=== PATIENT | male | born 1950 | race Hispanic/Latino ===

== ENCOUNTER 2016-12-05 10:45 | Emergency (ER) | payer OTHER ==
[2016-12-05 10:46] VITALS: BMI 25.7
[2016-12-05] MEDS ORDERED: Sodium Chloride 0.9% 1,000 ML IV ONE (11:14)
[2016-12-05] MEDS ORDERED: Sodium Chloride 0.9% 1,000 ML ONE (11:28)
[2016-12-05 12:02] LABS: BASO % 0.3 % (0.0-2.0); CHLORIDE 98 mmol/L (98-107); EOS # 0.1 K/uL (0.0-0.7); EOS % 0.9 % (0.0-4.0); LYMPH # 0.9 K/uL (1.0-4.3); LYMPH % 8.5 % (20.0-40.0); MEAN CELL VOLUME 90.5 fL (80.0-94.0); MEAN CORPUSCULAR HEMOGLOBIN 29.7 pg (27.0-31.0); MEAN CORPUSCULAR HGB CONC 32.9 g/dL (33.0-37.0); MEAN PLATELET VOLUME 10.6 fL (7.2-11.7); MONO # 0.9 K/uL (0.0-0.8); MONO % 8.3 % (0.0-10.0); PLATELET COUNT 205 K/uL (130-400); RED CELL DISTRIBUTION WIDTH 13.2 % (11.5-14.5)
--- NOTE | 2016-12-05 12:02 | C.PDOC ---
History Of Present Illness The patient, a 66 y/o male with no significant PMHx, presents to the ED for evaluation of vomiting and diarrhea which began this morning. Patient reports eating salmon yesterday, that did not make him feel well shortly after. Patient also reports feeling weak. Otherwise, patient denies any pain, headache, dizziness, or sick contacts. Time Seen by Provider: 12/05/16 11:05 Chief Complaint (Nursing): GI Problem History Per: Patient History/Exam Limitations: no limitations Onset/Duration Of Symptoms: Hrs Current Symptoms Are (Timing): Still Present Quality Of Discomfort: denies: "Pain" Associated Symptoms: Nausea, Vomiting, Diarrhea. denies: Fever, Chills Exacerbating Factors: Food Alleviating Factors: None Last Bowel Movement: Today Recent travel outside of the [place]: No Additional History Per: Patient Past Medical History Reviewed: Historical Data, Nursing Documentation, Vital Signs Vital Signs: Last Vital Signs Temp 98.3 F 12/05/16 12:34 Pulse 77 12/05/16 12:34 Resp 20 12/05/16 12:34 BP 106/64 12/05/16 12:34 Pulse Ox 96 12/05/16 12:34 - Medical History PMH: No Chronic Diseases Denies: Chronic Kidney Disease Surgical History: No Surg Hx Family History: States: Unknown Family Hx - Social History Hx Tobacco Use: No Hx Alcohol Use: No Hx Substance Use: No - Immunization History Hx Tetanus Toxoid Vaccination: Yes (UP TO DATE) Hx Influenza Vaccination: Yes Hx Pneumococcal Vaccination: No Review Of Systems Except As Marked, All Systems Reviewed And Found Negative. Constitutional: Positive for: Weakness Gastrointestinal: Positive for: Nausea, Vomiting, Diarrhea. Negative for: Abdominal Pain Neurological: Negative for: Headache, Dizziness Physical Exam - Physical Exam Appears: Non-toxic, No Acute Distress Skin: Normal Color, Warm, Dry Head: Atraumatic, Normacephalic Eye(s): bilateral: Normal Inspection, EOMI Oral Mucosa: Moist Neck: Normal ROM, Supple Chest: Symmetrical, No Deformity, No Tenderness Cardiovascular: Rhythm Regular, No Murmur Respiratory: Normal Breath Sounds, No Rales, No Rhonchi, No Wheezing Gastrointestinal/Abdominal: Soft, No Tenderness, No Guarding, No Rebound Back: Normal Inspection, No Vertebral Tenderness, No Paraspinal Tenderness Extremity: Normal ROM, No Tenderness, No Swelling Neurological/Psych: Oriented x3, Normal Speech Gait: Steady ED Course And Treatment - Laboratory Results Result Diagrams: 12/05/16 11:44 12/05/16 11:44 Lab Interpretation: No Acute Changes O2 Sat by Pulse Oximetry: 99 (on RA) Pulse Ox Interpretation: Normal Medical Decision Making Medical Decision Making: Impression: 66y/o male with nausea, vomiting, and diarrhea Plan: * labs * Pepcid IV * Zofran IV * IV fluids * reassess and disposition Progress Notes: labs ordered and reviewed, no acute changes. . Patient received Pepcid IV, Zofran IV, and IV Fluids. Upon reevaluation, patient reports feeling better and was able to tolerate PO in ED. He feels comfortable going home and will be discharged with Rx. Disposition Counseled Patient/Family Regarding: Need For Followup, Rx Given - Disposition Disposition: HOME/ ROUTINE Disposition Time: 12:21 Condition: STABLE Additional Instructions: Prescription for Zofran sent to your [facility] pharmacy. Take zofran as needed for nausea and vomiting. Drink fluids to prevent dehydration. Try low-fat diet with increase in fluids such as sport drink, gelatin. Try soup, rice, bread, crackers , cereal, bananas to help with diarrhea. Avoid high sugar foods or drinks (soda and juice), fatty foods. Prescriptions: Ondansetron ODT [Zofran ODT] 1 odt PO BID PRN #6 odt PRN Reason: Nausea/Vomiting Instructions: Gastroenteritis (ED) - POA Present On Arrival: None - Clinical Impression Clinical Impression: Gastroenteritis - PA / FLIGHT CONTROL SPECIALIST / Resident Statement MD/DO has reviewed & agrees with the documentation as recorded. - Scribe Statement The provider has reviewed the documentation as recorded by the Scribe (Tiarra Rhodes) All medical record entries made by the Scribe were at my direction and personally dictated by me. I have reviewed the chart and agree that the record accurately reflects my personal performance of the history, physical exam, medical decision making, and the department course for this patient. I have also personally directed, reviewed, and agree with the discharge instructions and disposition.
[2016-12-05 12:03] LABS: POTASSIUM 4.7 mmol/L (3.6-5.2); SODIUM 139 mmol/L (132-148)
[2016-12-05 12:05] LABS: GFR AFRICAN-AMERICAN > 60
[2016-12-05 12:06] LABS: ALB/GLOB RATIO 1.4 (1.0-2.1); ALKALINE PHOSPHATASE 81 U/L (38-126); ALT/SGPT 38 U/L (21-72); AST/SGOT 25 U/L (17-59); BILIRUBIN,TOTAL 0.8 mg/dL (0.2-1.3); BLOOD UREA NITROGEN 23 mg/dL (9-20); CARBON DIOXIDE 27 mmol/L (22-30); GLUCOSE,RANDOM 107 mg/dL (75-110); TOTAL PROTEIN 7.5 g/dL (6.3-8.3); WHITE BLOOD COUNT 10.9 K/uL (4.8-10.8)
[2016-12-05 12:07] LABS: CALCIUM 8.8 mg/dl (8.6-10.4)
[2016-12-05 12:27] LABS: NEUTROPHIL 72 % (50-75); TOTAL CELLS COUNTED 100
[2016-12-05 12:29] LABS: LARGE PLATELETS PRESENT
[2016-12-05 12:36] VITALS: BP 106/64; PULSE 77; RESP 20; TEMP 98.3
[2016-12-05 16:02] VITALS: O2SAT 99
== END 2016-12-05 12:34 | disposition home or self-care (01) ==
LOC: C.ER 10:45
DX: K52.9 Noninfective gastroenteritis and colitis, unspecified (principal)
CPT/HCPCS: 80053; 83690; 85025; 96374; 96375; 99284; J2405; J7040

== ENCOUNTER 2017-07-19 07:54 | Emergency (ER) | payer OTHER ==
[2017-07-19 08:01] VITALS: BMI 23.5
[2017-07-19 08:03] VITALS: BP 143/84; PULSE 75; RESP 16; TEMP 98; O2SAT 99
[2017-07-19] MEDS ORDERED: Tetracaine 0.5% Ophth 2 ML BOTTLE OD STA (08:18)
[2017-07-19] MEDS ORDERED: Fluorescein 1 mg Ophthalmic Strip OD STA (08:18)
[2017-07-19] MEDS ORDERED: Fluorescein 1 mg Ophthalmic Strip ONE (08:20)
[2017-07-19] MEDS ORDERED: Tetracaine 0.5% Ophth (OR ONLY) ONE (08:21)
--- NOTE | 2017-07-19 08:26 | C.PDOC ---
History Of Present Illness Patient is a 67 y/o M presenting with R eye pain. Patient reports that he opened a basement door today and felt a jhonatan of wind hit his eye. He report that since that time he has noticed redness to his R eye with itchy feeling. Denies eye discharge. Denies vision changes. Denies contact lens use. Reports that he wears glasses only Time Seen by Provider: 07/19/17 07:59 Chief Complaint (Nursing): Eye Problem Past Medical History Vital Signs: Last Vital Signs Temp 98.0 F 07/19/17 08:01 Pulse 75 07/19/17 08:01 Resp 16 07/19/17 08:01 BP 143/84 07/19/17 08:01 Pulse Ox 99 07/19/17 08:31 - Medical History PMH: Denies: Chronic Kidney Disease Family History: States: Unknown Family Hx - Social History Hx Tobacco Use: No Hx Alcohol Use: No Hx Substance Use: No - Immunization History Hx Tetanus Toxoid Vaccination: Yes (UP TO DATE) Hx Influenza Vaccination: Yes (05/2017) Hx Pneumococcal Vaccination: No Review Of Systems Constitutional: Negative for: Fever, Chills Eyes: Positive for: Pain, Conjunctivae Inflammation, Redness. Negative for: Vision Change ENT: Negative for: Ear Pain, Ear Discharge, Nose Pain, Nose Discharge, Throat Pain, Throat Swelling Neurological: Negative for: Weakness, Numbness, Headache Physical Exam - Physical Exam Appears: Well, Non-toxic, No Acute Distress Skin: Normal Color, Warm, Dry Head: Atraumatic, Normacephalic Eye(s): bilateral: PERRL, EOMI, right: Other (conjunctival injection to R eye. Fluoroscein uptake at 6oclock. No foreign body visualized with eversion of lids) Oral Mucosa: Moist Gait: Steady ED Course And Treatment O2 Sat by Pulse Oximetry: 99 Medical Decision Making Medical Decision Making: No foreign body visualized. Fluoroscein uptake consistent with corneal abrasion. Visual acuity at baseline b/l (20/40 b/l) Will dc with drops. To follow-up with ophtho Disposition - Disposition Disposition: HOME/ ROUTINE Disposition Time: 08:26 Condition: GOOD Additional Instructions: Follow-up with ophtho with 1 week. Return to ED if condition worsens. Use drops for 5 days. Prescriptions: Ofloxacin Ophth 0.3% [Ocuflox Ophth 0.3%] 2 drop RIGHTEYE Q6 #1 bottle Instructions: Corneal Abrasion (ED) Forms: [facility] (North Korean) - Clinical Impression Clinical Impression: Corneal abrasion
== END 2017-07-19 08:43 | disposition home or self-care (01) ==
LOC: C.ER 07:54
DX: S05.01XA Injury of conjunctiva and corneal abrasion without foreign body, right eye, initial encounter (principal); X58.XXXA Exposure to other specified factors, initial encounter

== ENCOUNTER 2017-07-28 06:02 | Emergency (ER) | payer OTHER ==
[2017-07-28 06:03] VITALS: BMI 23.5
[2017-07-28] MEDS ORDERED: Tetracaine 0.5% Ophth 2 ML BOTTLE OD ONE (06:25)
[2017-07-28] MEDS ORDERED: Fluorescein 1 mg Ophthalmic Strip OD ONE (06:25)
[2017-07-28] MEDS ORDERED: Tetracaine 0.5% Ophth (OR ONLY) ONE (06:27)
[2017-07-28] MEDS ORDERED: Fluorescein 1 mg Ophthalmic Strip ONE (06:27)
--- NOTE | 2017-07-28 06:37 | C.PDOC ---
History Of Present Illness 67 year old male presents to the ER with a complaint of right eye discomfort and redness since last night. Patient was seen last week for a corneal abrasion and states he it feels the same. Patient has not followed up with ophthalmology but note she has been using drops for the past week. Denies recent trauma or injury. Time Seen by Provider: 07/28/17 06:21 Chief Complaint (Nursing): Eye Problem History Per: Patient History/Exam Limitations: no limitations Onset/Duration Of Symptoms: Hrs Current Symptoms Are (Timing): Still Present Injury To Eye?: No Wears Contact Lens?: No Associated Symptoms: Other (Discomfort, Redness). denies: Decreased Vision, Discharge From Eye Recent travel outside of the [place]: No Past Medical History Reviewed: Historical Data, Nursing Documentation, Vital Signs Vital Signs: Last Vital Signs Temp 97.6 F 07/28/17 06:10 Pulse 71 07/28/17 06:10 Resp 20 07/28/17 06:10 BP 123/77 07/28/17 06:10 Pulse Ox 96 07/28/17 06:44 - Medical History PMH: No Chronic Diseases Surgical History: No Surg Hx Family History: States: Unknown Family Hx - Social History Hx Tobacco Use: No Hx Alcohol Use: No Hx Substance Use: No - Immunization History Hx Tetanus Toxoid Vaccination: No Hx Influenza Vaccination: Yes Hx Pneumococcal Vaccination: No Review Of Systems Eyes: Positive for: Redness, Other (Discomfort). Negative for: Vision Change Physical Exam - Physical Exam Appears: Non-toxic, No Acute Distress Skin: Normal Color, Warm, Dry Head: Atraumatic, Normacephalic Eye(s): bilateral: Normal Inspection (Visual acuity with carrie 20/40 with correction), PERRL, EOMI, right: Other (Ciliary injection, Fluorescein uptake at 11'o clock area) Oral Mucosa: Moist ED Course And Treatment O2 Sat by Pulse Oximetry: 96 (Room air) Pulse Ox Interpretation: Normal Disposition Counseled Patient/Family Regarding: Diagnosis, Need For Followup, Rx Given - Disposition Referrals: Saji Mcmillan [Staff Provider] - Disposition: HOME/ ROUTINE Disposition Time: 06:49 Condition: STABLE Additional Instructions: Apply cold compress Apply drops as directed Follow up with PMD Return to ER if worse Prescriptions: Ibuprofen [Motrin] 600 mg PO Q6H #20 tab Tobramycin 0.3% [Tobrex 0.3% Opth Soln] 2 drop OD BID #1 bottle Instructions: Corneal Abrasion (ED) Forms: [facility] (Faroese), Work Excuse - Clinical Impression Clinical Impression: Corneal abrasion - Scribe Statement The provider has reviewed the documentation as recorded by the Scribe Vikas Bowman All medical record entries made by the Scribe were at my direction and personally dictated by me. I have reviewed the chart and agree that the record accurately reflects my personal performance of the history, physical exam, medical decision making, and the department course for this patient. I have also personally directed, reviewed, and agree with the discharge instructions and disposition.
[2017-07-28 07:00] VITALS: BP 118/74; PULSE 74; RESP 18; TEMP 98; O2SAT 97
== END 2017-07-28 07:01 | disposition home or self-care (01) ==
LOC: C.ER 06:02
DX: S05.01XD Injury of conjunctiva and corneal abrasion without foreign body, right eye, subsequent encounter (principal); X58.XXXD Exposure to other specified factors, subsequent encounter

== ENCOUNTER 2018-02-17 15:35 | Emergency (ER) | payer OTHER ==
[2018-02-17 15:35] VITALS: BMI 23.5
[2018-02-17 15:38] VITALS: RESP 18
[2018-02-17] MEDS ORDERED: Tdap Vaccine 0.5 ml Vial (10-64 yrs) IM ONE ×2 (16:07→16:23)
--- NOTE | 2018-02-17 16:18 | C.PDOC ---
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 pt right hand dominant,. last tdap unknown. Time Seen by Provider: 02/17/18 15:43 Chief Complaint (Nursing): Abnormal Skin Integrity History Per: Patient History/Exam Limitations: no limitations Onset/Duration Of Symptoms: Mins Current Symptoms Are (Timing): Still Present Quality Of Symptoms: Painful Severity: Mild Past Medical History Reviewed: Historical Data, Nursing Documentation, Vital Signs Vital Signs: Last Vital Signs Temp 97.8 F 02/17/18 16:51 Pulse 78 02/17/18 16:51 Resp 18 02/17/18 16:51 BP 125/78 02/17/18 16:51 Pulse Ox 99 02/17/18 16:51 - Medical History PMH: No Chronic Diseases Denies: Chronic Kidney Disease Family History: States: Unknown Family Hx - Social History Hx Tobacco Use: No Hx Alcohol Use: No Hx Substance Use: No - Immunization History Hx Tetanus Toxoid Vaccination: No Hx Influenza Vaccination: Yes Hx Pneumococcal Vaccination: No Review Of Systems Constitutional: Negative for: Fever, Chills Skin: Positive for: Other (laceration left thumb) Neurological: Negative for: Weakness, Numbness Physical Exam - Physical Exam Appears: Non-toxic, No Acute Distress Skin: Warm, Dry, Other (sensation intact. ) Head: Atraumatic, Normacephalic Extremity: Other (left thumb with laceration. from. ) ED Course And Treatment O2 Sat by Pulse Oximetry: 98 Medical Decision Making Medical Decision Making: laceration to left thumb. suture recommended; pt declines sutures; wound soaked in saline and betadine, and dressed,. analgesic and tdap given. pt advised to return in 2 days for wound check. Disposition Counseled Patient/Family Regarding: Diagnosis, Need For Followup - Disposition Referrals: Katina Castellanos MD [Staff Provider] - Disposition: HOME/ ROUTINE Disposition Time: 16:45 Condition: GOOD Additional Instructions: Keep finger clean and dry; Return to ER tomorrow for a wound check. Tylenol or Motrin for pain if needed. Instructions: Wound Care (DC) Forms: [facility] (Sami), General Discharge Instructions - Clinical Impression Clinical Impression: Laceration of left thumb
[2018-02-17] MEDS ORDERED: Bacitracin 500 Units/gm Oint Foilpak UD ONE (16:37)
[2018-02-17 16:53] VITALS: BP 125/78; PULSE 78; TEMP 97.8
[2018-02-17 22:52] VITALS: O2SAT 98
== END 2018-02-17 16:56 | disposition home or self-care (01) ==
LOC: C.ER 15:35
DX: S61.012A Laceration without foreign body of left thumb without damage to nail, initial encounter (principal); W29.8XXA Contact with other powered hand tools and household machinery, initial encounter; Y92.9 Unspecified place or not applicable; Z23 Encounter for immunization

== ENCOUNTER 2018-07-13 17:37 | Emergency (ER) | payer OTHER ==
[2018-07-13 17:37] VITALS: BMI 23.5
[2018-07-13 17:45] VITALS: BP 137/83; PULSE 80; RESP 20; TEMP 98.6; O2SAT 99
[2018-07-13] MEDS ORDERED: Sodium Chloride 0.9% 1,000 ML IV ONE (17:45)
[2018-07-13] MEDS ORDERED: Sodium Chloride 0.9% 1,000 ML ONE (17:55)
--- NOTE | 2018-07-13 17:58 | C.PDOC ---
History Of Present Illness Bernadine Navarro is a 68 year old male, employee, presents to the ED complaining of nauseas and vomiting status post eating food from the cafeteria. Denies any other medical problems. Time Seen by Provider: 07/13/18 17:41 Chief Complaint (Nursing): Abdominal Pain History Per: Patient History/Exam Limitations: no limitations Onset/Duration Of Symptoms: Hrs Current Symptoms Are (Timing): Still Present Context: Food Associated Symptoms: Nausea, Vomiting. denies: Fever, Chills, Diarrhea, Urinary Symptoms Past Medical History Reviewed: Historical Data, Nursing Documentation, Vital Signs Vital Signs: Last Vital Signs Temp 98.6 F 07/13/18 17:40 Pulse 80 07/13/18 17:40 Resp 20 07/13/18 17:40 BP 137/83 07/13/18 17:40 Pulse Ox 99 07/13/18 17:40 - Medical History PMH: No Chronic Diseases Other Surgeries: Hx of surgeries Family History: States: No Known Family Hx - Social History Hx Tobacco Use: No Hx Alcohol Use: No Hx Substance Use: No - Immunization History Hx Tetanus Toxoid Vaccination: No Hx Influenza Vaccination: Yes Hx Pneumococcal Vaccination: No Review Of Systems Except As Marked, All Systems Reviewed And Found Negative. Constitutional: Negative for: Fever, Chills Gastrointestinal: Positive for: Nausea, Vomiting. Negative for: Abdominal Pain, Diarrhea Physical Exam - Physical Exam Appears: Non-toxic Skin: Warm, Dry Head: Atraumatic, Normacephalic Eye(s): bilateral: Normal Inspection Nose: Normal Oral Mucosa: Moist Neck: Normal ROM, Supple Chest: Symmetrical Cardiovascular: Rhythm Regular Respiratory: Normal Breath Sounds, No Rales, No Rhonchi, No Wheezing Gastrointestinal/Abdominal: Soft, No Tenderness, No Distention, No Guarding, No Rebound Extremity: Normal ROM Neurological/Psych: Oriented x3, Normal Speech Gait: Steady ED Course And Treatment - Laboratory Results Result Diagrams: 07/13/18 17:50 07/13/18 17:50 Lab Interpretation: No Acute Changes O2 Sat by Pulse Oximetry: 99 (RA) Pulse Ox Interpretation: Normal Progress Note: Treated with IVF NSS and zofran. On re-evaluation abdomen soft non-tender, feeling better, discharged in stable condition Reassessment Condition: Improved Medical Decision Making Medical Decision Making: Plan - Bloodwork - Zofran 4mg PO - IV fluids - UA Disposition Counseled Patient/Family Regarding: Studies Performed, Diagnosis, Need For Followup - Disposition Disposition Time: 18:40 Condition: STABLE Instructions: Nausea and Vomiting, Adult (DC) Forms: [facility] (Taiwanese) - POA Present On Arrival: None - Clinical Impression Clinical Impression: Nausea, Vomiting - PA / ASPNET DEVELOPER / Resident Statement MD/DO has reviewed & agrees with the documentation as recorded. - Scribe Statement The provider has reviewed the documentation as recorded by the Scribe Katia Castanon All medical record entries made by the Kennethibdavida were at my direction and personally dictated by me. I have reviewed the chart and agree that the record accurately reflects my personal performance of the history, physical exam, medical decision making, and the department course for this patient. I have also personally directed, reviewed, and agree with the discharge instructions and disposition.
[2018-07-13 18:01] LABS: BASO % 0.3 % (0.0-2.0); EOS # 0.1 K/uL (0.0-0.7); EOS % 1.3 % (0.0-4.0); HEMOGLOBIN 15.7 g/dL (12.0-18.0); LYMPH # 1.8 K/uL (1.0-4.3); LYMPH % 15.1 % (20.0-40.0); MEAN CORPUSCULAR HEMOGLOBIN 30.6 pg (27.0-31.0); MEAN CORPUSCULAR HGB CONC 34.3 g/dL (33.0-37.0); MONO # 1.1 K/uL (0.0-0.8); MONO % 9.3 % (0.0-10.0); NEUT # 8.7 K/uL (1.8-7.0); NRBC % 0.1 % (0.0-2.0); RBC 5.15 Mil/uL (4.40-5.90); RED CELL DISTRIBUTION WIDTH 13.4 % (11.5-14.5); WHITE BLOOD COUNT 11.8 K/uL (4.8-10.8)
[2018-07-13 18:10] LABS: ALB/GLOB RATIO 1.3 (1.0-2.1); ALBUMIN 4.6 g/dL (3.5-5.0); ALT/SGPT 29 U/L (21-72); AST/SGOT 29 U/L (17-59); BLOOD UREA NITROGEN 23 mg/dL (9-20); CALCIUM 9.2 mg/dl (8.6-10.4); GFR NON-AFRICAN AMERICAN > 60; LIPASE 30 U/L (23-300)
== END 2018-07-13 18:38 | disposition home or self-care (01) ==
LOC: C.ER 17:37
DX: R11.2 Nausea with vomiting, unspecified (principal)
CPT/HCPCS: 80053; 83690; 85025; 96361; 96374; 99283; J2405; J7030

== ENCOUNTER 2018-08-29 12:14 | Emergency (ER) | payer OTHER ==
[2018-08-29 12:14] VITALS: BMI 23.5
[2018-08-29 12:24] VITALS: BP 143/74; PULSE 75; RESP 18; TEMP 98.2; O2SAT 98
--- NOTE | 2018-08-29 13:02 | C.PDOC ---
History Of Present Illness 68 year old male presents to the emergency department with complaints of right ear discomfort described as a clogged sensation, associated with a "buzzing" and hearing difficulty for the last few days. Patient states that he also feels as if he's having ear wax buildup, as he's had similar symptoms in the past. Patient reports his ENT is Dr. Miner. He states that he did not make an attempt to clean his ears prior to arrival. Patient denies cough, fever, chills, and other cold symptoms. Time Seen by Provider: 08/29/18 12:34 Chief Complaint (Nursing): ENT Problem History Per: Patient History/Exam Limitations: None Onset/Duration Of Symptoms: Days Current Symptoms Are (Timing): Still Present Quality (Ear): Other (clogged sensation, discomfort, hearing difficulty). denies: Foreign Body Past Medical History Reviewed: Historical Data, Nursing Documentation, Vital Signs Vital Signs: Last Vital Signs Temp 98.2 F 08/29/18 12:24 Pulse 75 08/29/18 12:24 Resp 18 08/29/18 12:24 BP 143/74 08/29/18 12:24 Pulse Ox 98 08/29/18 12:24 - Medical History PMH: No Chronic Diseases Denies: Chronic Kidney Disease Surgical History: No Surg Hx Family History: States: No Known Family Hx - Social History Hx Tobacco Use: No Hx Alcohol Use: No Hx Substance Use: No - Immunization History Hx Tetanus Toxoid Vaccination: No Hx Influenza Vaccination: Yes Hx Pneumococcal Vaccination: No Review Of Systems Constitutional: Negative for: Fever, Chills ENT: Positive for: Other (right ear discomfort, clogged sensation, hearing difficulty). Negative for: Ear Pain, Ear Discharge Respiratory: Negative for: Cough Physical Exam - Physical Exam Appears: Well, Non-toxic, No Acute Distress Skin: Warm, Dry, No Rash Head: Atraumatic, Normacephalic Eye(s): bilateral: Normal Inspection, PERRL, EOMI Ear(s): Bilateral: Normal, Other (normal amount of serumen buildup) Nose: Normal Oral Mucosa: Moist Throat: Normal, No Erythema, No Exudate Neck: Normal ROM Chest: Symmetrical, No Tenderness Extremity: Bilateral: Atraumatic, Normal Color And Temperature, Normal ROM Neurological/Psych: Oriented x3, Normal Speech ED Course And Treatment O2 Sat by Pulse Oximetry: 98 (RA) Pulse Ox Interpretation: Normal Medical Decision Making Medical Decision Making: Plan: Motrin 600mg PO Patient requested his ear be cleaned. Using peroxide/water solution rinse and suction the ear, and cleanse of cerumen. Patient felt relief. Disposition Counseled Patient/Family Regarding: Diagnosis, Need For Followup, Rx Given - Disposition Referrals: Leif Miner MD [Staff Provider] - Disposition: HOME/ ROUTINE Disposition Time: 13:00 Condition: GOOD Additional Instructions: Follow up with your primary medical doctor or clinic in 2-5 days for further evaluation. Take medications as prescribed Prescriptions: Ibuprofen [Motrin] 600 mg PO Q8 #30 tab Instructions: Eustachian Tube Problems (DC) Forms: [facility] (Slovenian) - POA Present On Arrival: None - Clinical Impression Clinical Impression: Otalgia of right ear - PA / PUTTY REMOVER / Resident Statement MD/DO has reviewed & agrees with the documentation as recorded. - Scribe Statement The provider has reviewed the documentation as recorded by the Scribe (Jens Florence) All medical record entries made by the Scribe were at my direction and personally dictated by me. I have reviewed the chart and agree that the record accurately reflects my personal performance of the history, physical exam, medical decision making, and the department course for this patient. I have also personally directed, reviewed, and agree with the discharge instructions and disposition.
== END 2018-08-29 13:10 | disposition home or self-care (01) ==
LOC: C.ER 12:14
DX: H92.01 Otalgia, right ear (principal)

== ENCOUNTER 2018-11-22 11:07 | Outpatient (CLI) | payer OTHER | END 2018-11-22 11:08 | disposition home or self-care (01) | LOC: C.RADH 11:07 | DX: Z57.39 Occupational exposure to other air contaminants (principal) ==